=== PATIENT | female | born 1950 | race Two or more races ===

== ENCOUNTER 2019-09-24 08:19 | Outpatient (CLI) | payer OTHER | END 2019-09-24 08:21 | disposition home or self-care (01) | LOC: SONOGRAMA 08:19 | DX: E04.1 Nontoxic single thyroid nodule (principal) ==

== ENCOUNTER 2020-04-09 07:00 | Day surgery (SDC) | payer OTHER | END 2020-04-09 15:00 | disposition home or self-care (01) | LOC: AMB-ENDOS 07:00 | PROVIDERS: ATTEND Surgery | DX: D12.5 Benign neoplasm of sigmoid colon (principal); K64.8 Other hemorrhoids; Z20.828 Contact with and (suspected) exposure to other viral communicable diseases ==